=== PATIENT | female | born 1965 | race Two or more races ===

== ENCOUNTER 2021-08-06 05:50 | Day surgery (SDC) | payer OTHER ==
[~2021-08-06 05:50] MED LIST: ZOCOR20 MG PO
== END 2021-08-06 10:40 | disposition home or self-care (01) ==
LOC: CIR.AMB 05:50
PROVIDERS: ATTEND Surgery
DX: D23.4 Other benign neoplasm of skin of scalp and neck (principal); L72.11 Pilar cyst; Z20.822 Contact with and (suspected) exposure to COVID-19